=== PATIENT | female | born 1990 | race African-American/Black ===

== ENCOUNTER 2023-03-22 08:00 | Emergency (ER) | payer OTHER, SELFPAY ==
[2023-03-22 08:06] VITALS: BP 141/100; PULSE 91; RESP 18; TEMP 36.7; O2SAT 100; BMI 18.6
[2023-03-22 09:03] VITALS: PULSE 75; O2SAT 99
[2023-03-22 09:04] VITALS: BP 108/66; PULSE 76; O2SAT 100
[2023-03-22 09:11] LABS: Add Manual Diff / Slide Review NO; Basophils Absolute Auto 0 /uL (0-100); Basophils Percent Auto 1.1 % (0-2); Eosinophils Absolute Auto 100 /uL (0-450); Eosinophils Percent Auto 1.8 % (2-4); Hematocrit 38.1 % (36-46); Hemoglobin 12.6 g/dL (12.0-16.0); Lymphocytes Absolute Auto 1200 /uL (1100-4500); Lymphocytes Percent Auto 38.4 % (25-40); Mean Corpuscular Hemoglobin 28.3 PG (26-34); Mean Corpuscular Volume 85.7 fL (80-100); Monocytes Absolute Auto 300 /uL (0-900); Monocytes Percent Auto 8.7 % (3-14); Neutrophils Absolute Auto 1600 /uL (1500-7000); Platelet Count 333 X10^3/uL (150-400); Red Blood Cell Count 4.44 X10^6/uL (4.0-5.2); White Blood Cell Count 3.2 X10^3/uL (4.5-11.0)
[2023-03-22 09:22] LABS: Alanine Aminotransferase 20 IU/L (<35); Albumin 4.7 g/dL (3.5-5.0); Albumin Globulin Ratio 1.3 (1.0-2.8); Alkaline Phosphatase 66 U/L (38-126); Aspartate Aminotransferase 29 IU/L (14-36); BUN Creatinine Ratio 19.4 (6-22); Bilirubin Total 0.4 mg/dL (0.2-1.3); Blood Urea Nitrogen 12 mg/dL (7-17); Calcium 9.2 mg/dL (8.4-10.2); Carbon Dioxide 28 mmol/L (22-32); Chloride 102 mmol/L (98-107); Estimated Glomerular Filt Rate > 60 mL/min (>60); Globulin 3.7 g/dL (1.7-4.1); Glucose 86 mg/dL (70-100); HEMOLYSIS < 15 (0-50); Lipase 93 U/L (23-300); Potassium 3.8 mmol/L (3.4-5.1); Sodium 138 mmol/L (137-145); Total Protein 8.4 g/dL (6.3-8.2)
--- NOTE | 2023-03-22 09:22 | ED.FEMALEGU ---
HPI - Female Genitourinary General Chief complaint: Abdominal Pain Stated complaint: rt side pain goies down to groin area, can't sleep Time Seen by Provider: 03/22/23 09:07 History of Present Illness HPI Narrative: Patient here for right lower back pain radiating to the right groin for the past 1 year. Has had urinary frequency but no dysuria or hematuria. Denies any flank pain. Patient states had injured her lower back years ago and never felt the lower back being normal as before. No leg numbness tingling or weakness. No saddle paresthesia. Patient has been worked up by the [place] [facility] providers for her urinary complaints including ultrasound of the kidneys, CT scan of abdomen pelvis, these were done in the last 8 months. In addition in October of this year she was sent to [facility] and had exploratory laparoscopic surgery which was unremarkable according the patient. They could not find the source of her urinary complaints and right side pain. Related Data Previous Rx's Medication Instructions Recorded gabapentin 300 mg capsule 300 mg PO TID #21 caps 03/22/23 (Neurontin) Allergies Allergy/AdvReac Type Severity Reaction Status Date / Time No Known Drug Allergies Allergy Unverified 06/28/22 10:03 Review of Systems Review of Systems Narrative: GENERAL: negative chills, fatigue, malaise, fever, sweats. HEENT: negative sinus pain, ear pain, sore throat RESPIRATORY: negative dyspnea, cough CARDIOVASCULAR: negative chest pain, palpitations GASTROINTESTINAL: negative nausea, vomiting, abdominal pain : negative dysuria, positive frequency, negative hematuria MUSCULOSKELETAL: negative muscle or bony pain, positive back pain SKIN: negative rash, skin lesions NEUROLOGIC: negative weakness, numbness ROS Unobtainable: All systems reviewed & are unremarkable except as noted in HPI and below Patient History Medical History Acne GERD (gastroesophageal reflux disease) (~2013) History of frequent headaches Migraines Surgical History Anesthesia alcohol intake frequency: other Substance Use Type: does not use Exam Narrative Exam Narrative: GENERAL: in no distress, not toxic not dyspneic HEAD: Normocephalic. EYES: Pupils equal round ENT: Mucous membranes moist. NECK: Trachea midline. CARDIOVASCULAR: Regular rate and rhythm RESPIRATORY: Clear to auscultation. Breath sounds equal bilaterally. No wheezes, rales, or rhonchi. GASTROINTESTINAL: Abdomen soft, abdomen is soft and flat, mild suprapubic tenderness, no CVA tenderness. EXTREMITIES: No gross deformities. BACK: No flank tenderness. No pain with bilateral straight leg raises. No pain with doing side bends left and right in the back and forward. There is mild right lower paralumbar muscle tenderness NEURO: AOx4. SKIN: Warm and dry PSYCH: Not anxious, is cooperative Initial Vital Signs Initial Vital Signs: Vital Signs Temperature 98.1 F 03/22/23 08:06 Pulse Rate 91 H 03/22/23 08:06 Respiratory Rate 18 03/22/23 08:06 Blood Pressure 141/100 H 03/22/23 08:06 Pulse Oximetry 100 03/22/23 08:06 Oxygen Delivery Method Room Air 03/22/23 08:06 Course Orders Ordered: Discontinued Medications Ondansetron HCl (Ondansetron 4 Mg Odt) 4 mg PO NOW PRN PRN Reason: Nausea And Vomiting Ondansetron HCl (Ondansetron 4 Mg/2 Ml Inj) 4 mg IV NOW PRN PRN Reason: Nausea And Vomiting Vital Signs Vital signs: Vital Signs - 8 hr 03/22/23 08:06 03/22/23 09:03 03/22/23 09:04 Temperature 98.1 F Pulse Rate 91 H 75 Respiratory Rate 18 Blood Pressure 141/100 H 108/66 Pulse Oximetry 100 99 Oxygen Delivery Method Room Air 03/22/23 09:04 Temperature Pulse Rate 76 Respiratory Rate Blood Pressure Pulse Oximetry 100 Oxygen Delivery Method MDM - Female Genitourinary Lab Data 03/22/23 09:01 03/22/23 09:01 Labs: Lab Results 03/22/23 03/22/23 Range/Units 09:01 09:01 WBC 3.2 L (4.5-11.0) X10^3/uL RBC 4.44 (4.0-5.2) X10^6/uL Hgb 12.6 (12.0-16.0) g/dL Hct 38.1 (36-46) % MCV 85.7 (80-100) fL MCH 28.3 (26-34) PG MCHC 33.0 (30-36) % RDW 14.0 (11.6-14.8) % Plt Count 333 (150-400) X10^3/uL Neut % (Auto) 50.0 (50-75) % Lymph % (Auto) 38.4 (25-40) % [place] % (Auto) 8.7 (3-14) % Eos % (Auto) 1.8 L (2-4) % Baso % (Auto) 1.1 (0-2) % Neut # (Auto) 1600 (1944-4446) /uL Lymph # (Auto) 1200 (6242-0963) /uL [place] # (Auto) 300 (0-900) /uL Eos # (Auto) 100 (0-450) /uL Baso # (Auto) 0 (0-100) /uL Sodium 138 (137-145) mmol/L Potassium 3.8 (3.4-5.1) mmol/L Chloride 102 (98-107) mmol/L Carbon Dioxide 28 (22-32) mmol/L BUN 12 (7-17) mg/dL Creatinine 0.62 (0.52-1.04) mg/dL Estimated GFR > 60 (>60) mL/min BUN/Creatinine Ratio 19.4 (6-22) Glucose 86 (70-100) mg/dL Calcium 9.2 (8.4-10.2) mg/dL Total Bilirubin 0.4 (0.2-1.3) mg/dL AST 29 (14-36) IU/L ALT 20 (<35) IU/L Alkaline Phosphatase 66 (38-126) U/L Total Protein 8.4 H (6.3-8.2) g/dL Albumin 4.7 (3.5-5.0) g/dL Globulin 3.7 (1.7-4.1) g/dL Albumin/Globulin Ratio 1.3 (1.0-2.8) Lipase 93 (23-300) U/L Point of Care Testing Test Results Negative Urine Dip Bedside Urine Glucose Negative Bedside Urine Bilirubin - Negative Bedside Urine Ketone - Negative Urine Specific [place] 1.000 Bedside Urine Occult Blood - Negative Bedside Urine pH 7.0 Bedside Urine Protein - Negative Bedside Urine Urobilinogen - Negative Bedside Urine Nitrite - Negative Bedside Urine Leukocytes - Negative Esterase MDM Narrative Medical decision making narrative: Patient here for right lower back pain radiating to the right groin for the past 1 year. Has had urinary frequency but no dysuria or hematuria. Denies any flank pain. Patient states had injured her lower back years ago and never felt the lower back being normal as before. No leg numbness tingling or weakness. No saddle paresthesia. Patient has been worked up by the [place] [facility] providers for her urinary complaints including ultrasound of the kidneys, CT scan of abdomen pelvis, these were done in the last 8 months. In addition in October of this year she was sent to [facility] and had exploratory laparoscopic surgery which was unremarkable according the patient. They could not find the source of her urinary complaints and right side pain. After history and exam CBC CMP urinalysis MRI lumbar spine, consult Urology [facility] CC: Right side back pain Complicating co-morbidities: Ongoing symptoms for 1 year Data collected from: Patient Medical records reviewed: No recent visit here for this complaint Differential considered: Includes but not limited to lumbar radiculopathy cystitis appendicitis pyelonephritis UTI Exam documented above, pertinent findings include: Mild suprapubic tenderness Lab Test results independently reviewed as above. Pertinent findings: Urine negative, urinalysis negative nitrite negative leukocyte esterase WBC 3.2 Imaging studies independently reviewed: Consultations: 9:[address] Solorzano, urology, agrees patient could benefit with cystoscopy. Does agree patient could start on gabapentin 300 mg t.i.d. for possible interstitial cystitis. Treatments: None indicated at this time. Re-evaluations: 9:30 a.m.. Spoke with patient. MRI would not be done until 230 this afternoon. Patient does not want to wait for the MRI today. This is not urgent leak needed. This can be scheduled outpatient. She desires to follow up with primary care for outpatient MRI of the lumbar spine. Discussion: Appropriate for discharge home. These symptoms have been ongoing for the past 1 year. Patient has had extensive workup including exploratory laparoscopy for this complaint as well as renal ultrasounds and CT scan imaging. Patient can have outpatient lumbar spine MRI. However at this time with suprapubic tenderness and her symptoms likely not the cause or source of her complaints. Return precautions reviewed with her. She agrees with treatment plan. She desires discharge home with. No further imaging indicated. Patient has had extensive workup already Diagnosis: Cystitis Discharge Plan Departure Patient Disposition: Home Clinical Impression: Cystitis Instructions: DI for Interstitial Cystitis Activity Restrictions/Additional Instructions: Please call provided urology office today to make appointment for evaluation of your urinary complaints and for possible cystoscopy of your bladder. Prescription medication gabapentin/Neurontin has been sent to your pharmacy to pick up and delivery driver today in to start. This may help with your urinary symptoms. See family doctor to schedule outpatient MRI of your lumbar spine. Return if worse if any questions or concerns Prescriptions: New gabapentin [Neurontin] 300 mg capsule 300 mg PO TID Qty: 21 0RF Referrals: Caitlyn Solorzano MD [Physician] - Provider,Kari SKINNER [Primary Care Provider] - Stand Alone Forms: Patient Portal/API
[2023-03-22 10:02] VITALS: BP 111/69; PULSE 71; O2SAT 100
== END 2023-03-22 10:05 | disposition home or self-care (01) ==
PROVIDERS: Emergency Provider Emergency Medicine
DX: N30.90 Cystitis, unspecified without hematuria (principal)
CPT/HCPCS: 36415; 80053; 81003; 81025; 83690; 85025; 99283; 99284

== ENCOUNTER → 2023-05-26 11:11 | Outpatient (CLI) | payer OTHER, SELFPAY ==
--- NOTE | 2023-05-26 | DI.US.S_ITS ---
PROCEDURE: US RENAL COMPLETE INDICATIONS: ABDOMINAL PAIN TECHNIQUE: Real-time scanning was performed of the kidneys and bladder, with image documentation. COMPARISON: Outside Film, US, US ABDOMEN COMPLETE, 09/07/2018, 13:50. FINDINGS: Kidneys: Kidneys are normal in size. Right kidney measures 9 cm long; left kidney measures 9.4 cm long. Right renal cortical thickness is 1.3 cm; left renal cortical thickness is 1.6 cm. Renal cortical echotexture is normal. No hydronephrosis or nephrolithiasis. No suspicious solid mass lesions. Bladder: Pre-void bladder volume is 187 mL. Post-void residual is 0 mL. Pre-void images demonstrate no intraluminal masses or stones. On pre-void images, both ureteral jets are noted with color Doppler interrogation. (Of note, ureteral jets may not be detectable in up to 25% of cases due to insufficient differences in specific gravity between ureteral and bladder urine). Miscellaneous: No free pelvic fluid. IMPRESSION: No hydronephrosis. No postvoid residual. Dictated by: Scotty Rehman M.D. on 05/26/2023 at 14:09 Approved by: Scotty Rehman M.D. on 05/26/2023 at 14:12
== END ==
PROVIDERS: Referring Provider Physician Assistant Medical; Visit Provider Urology
DX: R10.9 Unspecified abdominal pain (principal)
CPT/HCPCS: 76770

== ENCOUNTER 2024-11-10 11:35 | Emergency (ER) | payer OTHER, SELFPAY ==
[2024-11-10 11:39] VITALS: BP 135/72; PULSE 77; RESP 18; TEMP 37.3; O2SAT 100; BMI 19.8
--- NOTE | 2024-11-10 11:44 | EKG_ITS ---
[address] [address] Test Date: 2024-11-10 Pat Name: Chang Serrato Department: [facility] Room: Gender: Female Event Staff: MARTELL : 1990 Requested By: Order Number: [id number] Reading MD: Santos Lackey Measurements Intervals [place] Rate: 83 P: 67 CT: 162 QRS: 43 QRSD: 88 T: 56 QT: 370 QTc: 434 Interpretive Statements Normal sinus rhythm Electronically Signed On 11-10-2024 18:25:50 PDT by Santos Lackey
--- NOTE | 2024-11-10 11:44 | DI.RAD.S_ITS ---
PROCEDURE: XR CHEST 1V INDICATIONS: chest pain TECHNIQUE: One view of the chest was acquired. COMPARISON: None. FINDINGS: Surgical changes and devices: None. Lungs and pleura: Lungs are clear. No pleural effusions or pneumothorax. Mediastinum: Mediastinal contours appear normal. Heart size is normal. Bones and chest wall: No suspicious bony lesions. Overlying soft tissues appear unremarkable. IMPRESSION: No acute cardiopulmonary abnormality is seen. Dictated by: Bob Nicolas M.D. on 11/10/2024 at 12:29 Approved by: Bob Nicolas M.D. on 11/10/2024 at 12:32
[2024-11-10 11:48] VITALS: BP 117/68
[2024-11-10 11:57] VITALS: PULSE 78; O2SAT 100
[2024-11-10 12:00] VITALS: PULSE 85; RESP 14; O2SAT 100
[2024-11-10 12:12] LABS: Basophils Absolute Auto 100 /uL (0-100); Basophils Percent Auto 1.1 % (0-2); Eosinophils Absolute Auto 100 /uL (0-450); Eosinophils Percent Auto 1.2 % (2-4); Hematocrit 36.8 % (36-46); Hemoglobin 12.3 g/dL (12.0-16.0); Lymphocytes Absolute Auto 1800 /uL (1100-4500); Lymphocytes Percent Auto 31.2 % (25-40); Mean Corpuscular HGB Conc 33.4 % (30-36); Mean Corpuscular Hemoglobin 29.1 PG (26-34); Mean Corpuscular Volume 87.1 fL (80-100); Monocytes Absolute Auto 400 /uL (0-900); Monocytes Percent Auto 7.5 % (3-14); Neutrophils Absolute Auto 3400 /uL (1500-7000); Platelet Count 307 X10^3/uL (150-400); Red Blood Cell Count 4.23 X10^6/uL (4.0-5.2); White Blood Cell Count 5.7 X10^3/uL (4.5-11.0)
[2024-11-10 12:14] LABS: INR 1.1 (0.9-1.3); Prothrombin Time 12.2 SECONDS (9.4-12.5)
[2024-11-10 12:16] LABS: PTT Partial Thromboplastin Tim 47 SECONDS (25.1-36.5)
[2024-11-10 12:18] LABS: Alanine Aminotransferase 22 IU/L (<35); Albumin 5.2 g/dL (3.5-5.0); Albumin Globulin Ratio 1.2 (1.0-2.8); Alkaline Phosphatase 85 U/L (38-126); Aspartate Aminotransferase 33 IU/L (14-36); BUN Creatinine Ratio 13.7 (6-22); Bilirubin Total 0.5 mg/dL (0.2-1.3); Blood Urea Nitrogen 10 mg/dL (7-17); Calcium 10.2 mg/dL (8.4-10.2); Carbon Dioxide 24 mmol/L (22-32); Chloride 103 mmol/L (98-107); Creatine Kinase 174 U/L (30-135); Estimated Glomerular Filt Rate > 60 mL/min (>60); Globulin 4.2 g/dL (1.7-4.1); Glucose 94 mg/dL (70-100); HEMOLYSIS < 15 (0-50); Lipase 88 U/L (23-300); Potassium 3.6 mmol/L (3.4-5.1); Sodium 140 mmol/L (137-145); Total Protein 9.4 g/dL (6.3-8.2)
[2024-11-10 12:29] LABS: Add Manual Diff / Slide Review SLIDE REVIEW; Anisocytosis 1+
[2024-11-10 12:30] VITALS: PULSE 76; RESP 18; O2SAT 100
[2024-11-10 12:30] LABS: NT-proBNP (BNP-Adult 18+) 63 pg/mL (<125); Troponin I < 0.012 ng/mL (0.01-0.034)
--- NOTE | 2024-11-10 13:17 | PC.NURSE ---
This RN checks on patient. She reports still having palpitations at this time. Chest discomfort is worse with laying down at night. Pt able to ambulate to bathroom without difficulty.
--- NOTE | 2024-11-10 13:36 | ED.ARRPALP ---
HPI - Arrhythmia/Palpitations General Chief Complaint: Arrhythmia/Palpitations Stated Complaint: heart palpitations, sob t-5 Time Seen by Provider: 11/10/24 13:34 Source: patient, RN notes reviewed and old records reviewed Mode of arrival: Ambulatory Limitations: no limitations History of Present Illness HPI narrative: 34-year-old female no reported medical issues who describes palpitations and sensation of shortness of breath starting last 1-2 weeks. States she notices it more at nighttime but has felt it during the daytime. Shortness or heartbeat very fast sometimes. From 80s to 90s but he had been up to 115. Patient states does tend to self resolve that is sometimes last for little while. She was had no syncope. She had some chest discomfort when she laid backwards at nighttime but no other chest pain. She was felt a short of breath when it is fast. She can feel like it is bounding she has not appreciated that is irregular versus regular. She was had some mild nausea but no vomiting. No abdominal back or flank pain. No black or bloody stools. No dysuria urgency or frequency. Denies any swelling of extremities. Saw primary care who thought she had anxiety placed her on amitriptyline to help with sleep and told her she could take it as needed. Patient states was not very helpful still having palpitation sensation stop the amitriptyline and then had very vivid dreams afterwards continued palpitations. She states no other medical issues, no prior surgeries, known drug allergies. No tobacco, alcohol or recreational drugs. States no family history of cardiac arrhythmias or cardiac disease, no blood clots. Patient has had no long distance travel is not on any form of estrogen. She notes that her spouse is currently deployed and she was too young boy she cares for. When she saw a primary care she states they did do any lab work. Related Data Previous Rx's Medication Instructions Recorded gabapentin 300 mg capsule 300 mg PO TID #21 caps 03/22/23 (Neurontin) Allergies Allergy/AdvReac Type Severity Reaction Status Date / Time No Known Drug Allergies Allergy Unverified 06/28/22 10:03 Review of Systems Review of Systems ROS Unobtainable: All systems reviewed & are unremarkable except as noted in HPI and below Patient History Medical History Acne Migraines History of frequent headaches GERD (gastroesophageal reflux disease) (~2013) Surgical History Anesthesia Social History Smoking Status: Never smoker Smoking Status: Never smoker alcohol intake frequency: other Exam Initial Vital Signs Initial Vital Signs: Vital Signs Temperature 99.2 F 11/10/24 11:39 Pulse Rate 77 11/10/24 11:39 Respiratory Rate 18 11/10/24 11:39 Blood Pressure 135/72 11/10/24 11:39 Pulse Oximetry 100 11/10/24 11:39 Oxygen Delivery Method Room Air 11/10/24 11:39 Scores HEART Score Heart Score history: Slightly Suspicious Heart Score EKG: Normal Heart Score Age: < 45 years old Heart Score risk factors: No known risk factors Heart Score troponin: < or = to normal limit Heart Score Total: 0 PERC Score Age greater than or equal to 50 years: No Heart rate greater than or equal to 100 bpm: No Room Air O2 Sat less than 95%: No Unilateral leg swelling: No Recent trauma or surgery: No Hemoptysis: No Prior PE or DVT: No Hormone Use: No Total PERC Score: 0 Course Orders Ordered: ED Orders 11/10/24 11:44 XR chest 1V Stat EKG-12 Lead Stat 11/10/24 11:59 Complete Blood Count AUTO DIFF Stat Comprehensive Metabolic Panel Stat D Dimer Stat Lipase Stat Magnesium Stat NT-proBNP (BNP-Adult 18+) Stat PTT Partial Thromboplastin [place] Stat Prothrombin Time INR Stat TSH w/ Reflex to FT4 Stat Troponin & CK Cardiac Panel Stat Vital Signs Vital signs: Vital Signs - 8 hr 11/10/24 11:39 11/10/24 11:48 11/10/24 11:57 Temperature 99.2 F Pulse Rate 77 78 Respiratory Rate 18 Blood Pressure 135/72 117/68 Pulse Oximetry 100 100 Oxygen Delivery Method Room Air 11/10/24 12:00 11/10/24 12:30 Temperature Pulse Rate 85 76 Respiratory Rate 14 18 Blood Pressure Pulse Oximetry 100 100 Oxygen Delivery Method MDM - Arrhythmia/Palpitations Lab Data 11/10/24 11:59 11/10/24 11:59 Labs: Lab Results 11/10/24 Range/Units 11:59 WBC 5.7 (4.5-11.0) X10^3/uL RBC 4.23 (4.0-5.2) X10^6/uL Hgb 12.3 (12.0-16.0) g/dL Hct 36.8 (36-46) % MCV 87.1 (80-100) fL MCH 29.1 (26-34) PG MCHC 33.4 (30-36) % RDW 14.0 (11.6-14.8) % Plt Count 307 (150-400) X10^3/uL Neut % (Auto) 59.0 (50-75) % Lymph % (Auto) 31.2 (25-40) % [place] % (Auto) 7.5 (3-14) % Eos % (Auto) 1.2 L (2-4) % Baso % (Auto) 1.1 (0-2) % Neut # (Auto) 3400 (5592-6353) /uL Lymph # (Auto) 1800 (3303-1783) /uL [place] # (Auto) 400 (0-900) /uL Eos # (Auto) 100 (0-450) /uL Baso # (Auto) 100 (0-100) /uL RBC Morphology See below Anisocytosis 1+ H PT 12.2 (9.4-12.5) SECONDS INR 1.1 (0.9-1.3) APTT 47 H (25.1-36.5) SECONDS D-Dimer 307 (<500) ng/ml Sodium 140 (137-145) mmol/L Potassium 3.6 (3.4-5.1) mmol/L Chloride 103 (98-107) mmol/L Carbon Dioxide 24 (22-32) mmol/L BUN 10 (7-17) mg/dL Creatinine 0.73 (0.52-1.04) mg/dL Estimated GFR > 60 (>60) mL/min BUN/Creatinine Ratio 13.7 (6-22) Glucose 94 (70-100) mg/dL Calcium 10.2 (8.4-10.2) mg/dL Magnesium 2.0 (1.6-2.3) mg/dL Total Bilirubin 0.5 (0.2-1.3) mg/dL AST 33 (14-36) IU/L ALT 22 (<35) IU/L Alkaline Phosphatase 85 (38-126) U/L Total Creatine Kinase 174 H (30-135) U/L Troponin I < 0.012 (0.01-0.034) ng/mL NT-Pro-B Natriuret Pep 63 (<125) pg/mL Total Protein 9.4 H (6.3-8.2) g/dL Albumin 5.2 H (3.5-5.0) g/dL Globulin 4.2 H (1.7-4.1) g/dL Albumin/Globulin Ratio 1.2 (1.0-2.8) Lipase 88 (23-300) U/L TSH 1.13 (0.47-4.68) uIU/mL ECG Data Attestation: I personally reviewed and interpreted this ECG as follows: Prior ECG tracings: not available for review Interpretation: Sinus rhythm rate 83 [place] 162 QRS 88 QTC of 434. No acute ST elevation or depression. No priors for comparison. MDM Narrative Medical decision making narrative: EKG shows sinus rhythm no acute changes no priors for comparison Labs normal CBC, normal INR electrolytes, BUN creatinine are normal Mag and a is 2 potassium 3.6 calcium is 10.2 total CK is 174 troponins less than 0.012 with a BNP of 63 total protein, albumin globulin are all slightly elevated. TSH is normal. D-dimer is negative at 307. Chest x-ray is negative for acute change. 34-year-old female presents with complaint of palpitations recently started on amitriptyline afterwards by her physician for possible anxiety but still having symptoms. Patient was stopped her amitriptyline which resulted in some pretty vivid dreams no improvement of symptoms. Discussed with the patient workup here today is overall benign no arrhythmias were captured she has not had any other high-risk factors necessitating further imaging but would recommend she follow up for Holter or ZIO patch with primary care. Heart score is 0. PERC is 0. Discharge Plan Departure Patient Disposition: Home Clinical Impression: Palpitations Instructions: DI for Palpitations Activity Restrictions/Additional Instructions: Please follow up for recheck with the primary care if you prefer contacts cardiology is also included. What you describing sounds like palpitations sometimes this can be extra beats but can sometimes be arrhythmias. Recommend talking with your physician about possibly having a ZIO patch or Holter monitor you can wear this home to catch any arrhythmias or changes. Your workup today with labs, EKG and chest x-ray did not show any major changes. Please return if you are having new or worsening symptoms, passing out, new chest pain, increasing shortness of breath, coughing up blood, new swelling in your extremities, persistent vomiting, persistently fast or irregular heart rate or other new or concerning changes. Prescriptions: No Action gabapentin [Neurontin] 300 mg capsule 300 mg PO TID Qty: 21 0RF Referrals: Sergio Fletcher MD [Physician] - Provider,Kari SKINNER [Primary Care Provider] - Stand Alone Forms: Patient Portal/API/Survey
[2024-11-10 14:14] LABS: D Dimer 307 ng/ml (<500)
[2024-11-10 14:45] LABS: TSH w/ Reflex to FT4 1.13 uIU/mL (0.47-4.68)
[2024-11-10 15:06] VITALS: BP 113/56; PULSE 89; RESP 20; O2SAT 100
== END 2024-11-10 15:05 | disposition home or self-care (01) ==
PROVIDERS: Emergency Provider Emergency Medicine
DX: R06.02 Shortness of breath (principal); R00.2 Palpitations; R07.89 Other chest pain
CPT/HCPCS: 36415; 71045; 80053; 82550; 83690; 83735; 83880; 84443; 84484; 85025; 85379; 85610; 85730; 93005; 99283; 99284

== ENCOUNTER → 2024-12-06 07:10 | Outpatient (CLI) | payer OTHER, SELFPAY ==
--- NOTE | 2024-12-06 07:11 | DI.US.S_ITS ---
PROCEDURE: US ABDOMEN LIMITED INDICATIONS: EPIGASTRIC/RUQ PAIN AFTER EATING. TTP RUQ. TECHNIQUE: Real-time scanning was performed of the abdominal and retroperitoneal organs, with image documentation. COMPARISON: None. FINDINGS: Liver: Liver is normal in size and homogeneous in echotexture. Gallbladder: No gallstones. No gallbladder wall thickening or pericholecystic fluid. Biliary ducts: Intrahepatic bile ducts are non-dilated. Extrahepatic bile duct caliber measures 3 mm. Normal is 6-7 mm or less in diameter, or 10 mm or less post-cholecystectomy. Pancreas: Visualized portions of the pancreas are sonographically normal. Miscellaneous: No free abdominal fluid. IMPRESSION: No gallstones. Common bile duct 3 mm within normal limits. If symptoms persist or worsen, or there is high clinical suspicion of abdominal abnormality, CT could be performed. Dictated by: Tyrone Martinez M.D. on 12/06/2024 at 10:40 Approved by: Tyrone Martinez M.D. on 12/06/2024 at 10:44
== END ==
PROVIDERS: Referring Provider Family Medicine; Visit Provider Family Medicine
DX: R10.13 Epigastric pain (principal); R10.11 Right upper quadrant pain
CPT/HCPCS: 76705